=== PATIENT | female | born 1965 | race Caucasian/White ===

== ENCOUNTER 2020-09-04 12:55 | Outpatient (CLI) | payer OTHER, SELFPAY ==
--- NOTE | ~2020-09-04 | MM_ITS ---
EXAMINATION: MM screening fatemeh BI w latrice HISTORY: Screening mammogram, family history of breast cancer in her mother. TECHNIQUE: Craniocaudal and mediolateral oblique 3-D tomosynthesis images were obtained and synthetic 2-D images were generated. CAD analysis was submitted and interpreted. COMPARISON: 06/06/2019, 06/01/2018, 11/10/2016 BREAST PARENCHYMAL COMPOSITION: The breasts are almost entirely fatty. FINDINGS: There is no evidence of suspicious mass, calcification, or architectural distortion to sugg est malignancy in either breast. There has been no suspicious interval change. IMPRESSION: 1. No mammographic evidence of malignancy. 2. Recommend routine screening mammography in one year. BI-RADS Category 1: Negative Reviewed, dictated and finalized at location A. RVISORY LIFEGUARD
== END 2020-09-04 12:56 | disposition home or self-care (01) ==
LOC: CHSIMG 12:57
PROVIDERS: PCP Family Medicine; Visit Provider Obstetrics & Gynecology
DX: Z12.31 Encounter for screening mammogram for malignant neoplasm of breast (principal)
CPT/HCPCS: 77063; 77067

== ENCOUNTER 2020-09-10 08:58 | Outpatient (CLI) | payer OTHER, SELFPAY ==
[2020-09-10 09:12] LABS: Basophils Absolute Auto 0.06 K/mm3 (0.00-0.10); Basophils Percent Auto 0.7 % (0.0-1.0); Eosinophils Percent Auto 4.8 % (1.0-6.0); Hematocrit 46.4 % (35.0-49.0); Hemoglobin 15.1 g/dL (12.0-15.0); Immature Granulocyte Absolute 0.01 K/mm3 (0.00-0.00); Immature Granulocyte Percent A 0.1 % (0.0-0.0); Lymphocytes Absolute Auto 2.04 K/mm3 (1.10-4.50); Lymphocytes Percent Auto 24.3 % (18.0-42.0); Mean Corpuscular HGB Conc 32.5 g/dL (32.0-36.0); Mean Corpuscular Hemoglobin 28.2 pg (27.0-31.0); Mean Corpuscular Volume 86.6 fL (78.0-102.0); Mean Platelet Volume 9.8 fl (9.2-11.8); Monocytes Absolute Auto 0.77 K/mm3 (0.10-0.90); Monocytes Percent Auto 9.2 % (2.0-11.0); Neutrophils Absolute Auto 5.1 K/mm3 (1.7-7.2); Neutrophils Percent Auto 60.9 % (50.0-70.0); Platelet Count Result 276 K/mm3 (150-420); Red Blood Count 5.36 M/mm3 (4.20-5.40); Red Cell Distribution Width 12.3 % (11.6-14.4); White Blood Count 8.4 K/mm3 (4.8-10.8)
[2020-09-10 10:11] LABS: Alanine Aminotransferase 30 U/L (14-59); Albumin Level 3.7 g/dL (3.4-5.0); Alkaline Phosphatase 58 U/L (46-116); Anion Gap 9 mmol/L (8-16); Aspartate Amino Transferase 18 U/L (15-37); Bilirubin,Total 0.3 mg/dL (0.00-1.00); Blood Urea Nitrogen 14 mg/dL (7-18); Calcium 8.8 mg/dL (8.5-10.1); Carbon Dioxide 28 mmol/L (21-32); Chloride 100 mmol/L (98-108); Cholesterol 210 mg/dL (0-200); Estimated Glomerular Filt Rate > 60; Glucose 90 mg/dL (70-99); HDL Direct 58 mg/dL (40-60); LDL Cholesterol Calculated 139 mg/dL (<130); Osmolality Calculated 284 mOsm/kg (285-295); Potassium 4.3 mmol/L (3.5-5.1); Sodium 137 mmol/L (136-145); Total Protein 8.2 g/dL (6.4-8.2); Triglycerides 67 mg/dL (0-150)
== END 2020-09-10 08:59 | disposition home or self-care (01) ==
LOC: CHSLAB 09:01
PROVIDERS: PCP Family Medicine; Visit Provider Family Medicine
DX: I10 Essential (primary) hypertension (principal)
CPT/HCPCS: 36415; 80053; 80061; 84443; 85025

== ENCOUNTER 2021-09-16 08:12 | Outpatient (CLI) | payer OTHER, SELFPAY ==
--- NOTE | ~2021-09-16 | MM_ITS ---
EXAMINATION: MM screening fatemeh BI w latrice HISTORY: Screening TECHNIQUE: Craniocaudal and mediolateral oblique 3-D tomosynthesis images were obtained and synthetic 2-D images were generated. CAD analysis was submitted and interpreted. COMPARISON: Comparison to multiple prior studies sequentially, with oldest reviewed study dated 10/24. BREAST PARENCHYMAL COMPOSITION: Breast composed of scattered areas of fibroglandular density FINDINGS: There is no evidence of suspicious mass, calcification, or architectural distortion to sugg est malignancy in either breast. There has been no suspicious interval change. IMPRESSION: 1. No mammographic evidence of malignancy. 2. Recommend routine screening mammography in one year. BI-RADS Category 1: Negative Reviewed, dictated and finalized at location A. SPRING II INSPECTOR
== END 2021-09-16 08:13 | disposition home or self-care (01) ==
LOC: CHSIMG 08:14
PROVIDERS: PCP Family Medicine; Visit Provider Obstetrics & Gynecology
DX: Z12.31 Encounter for screening mammogram for malignant neoplasm of breast (principal)
CPT/HCPCS: 77063; 77067

== ENCOUNTER 2022-09-12 08:57 | Outpatient (CLI) | payer OTHER, SELFPAY ==
--- NOTE | 2022-09-12 09:05 | EST_ITS ---
Patient Info Name: Chrissy Hernandez Age: 57 years : 1965 Gender: Female Ht: 64 in Wt: 246 lbs BSA: 2.30 m2 HR: 104 bpm BP: 149 / 99 mmHg Heart Rhythm: Tachycardia Technical Quality: Good Exam Date: 09/12/2022 9:18 AM Exam Location: [facility] Patient Status: Outpatient Admit Date: 09/12/2022 Staff Ordering Physician: Gunnar Coleman DO Attending Provider: Gunnar Coleman DO Exercise Technologist: Simran Hinkle CRT Exercise Physician: Leelee Hunt CEP Exam Type: CA stress test treadmill Study Info Indications AtypicalChestPain - An exercise stress test was performed. History/Risk Factors Hypertension: Yes Obesity: Yes History/Risk Factors Obesity, Hypertension. Summary 1. 1. Negative Ravinder exercise stress test for ischemic ST changes by ECG criteria. 2. 2. Reduced functional capacity, achieving 7 METs of workload. 3. 3. Baseline hypertension with hypertensive response to exercise. 4. 4. Appropriate HR response to exercise. 5. 5. Appropriate HR recovery at 1 minute post exercise. 6. 6. No imaging with stress testing. Protocol: Ravinder Stress ECG Details Stage: REST Duration (min): 1 min : 34 sec Speed (mph): 0.0 Grade (%): 0 HR (bpm): 105 SBP (mmHg): 149 DBP (mmHg): 99 METS: --- Stage: REST Duration (min): 9 min : 24 sec Speed (mph): 0.0 Grade (%): 0 HR (bpm): 111 SBP (mmHg): 149 DBP (mmHg): 99 METS: --- Stage: STAGE 1 Duration (min): 1 min : 0 sec Speed (mph): 1.7 Grade (%): 10 HR (bpm): 119 SBP (mmHg): 149 DBP (mmHg): 99 METS: --- Stage: STAGE 1 Duration (min): 2 min : 0 sec Speed (mph): 1.7 Grade (%): 10 HR (bpm): 128 SBP (mmHg): 149 DBP (mmHg): 99 METS: --- Stage: STAGE 1 Duration (min): 3 min : 0 sec Speed (mph): 1.7 Grade (%): 10 HR (bpm): 138 SBP (mmHg): 188 DBP (mmHg): 79 METS: --- Stage: STAGE 2 Duration (min): 1 min : 0 sec Speed (mph): 2.5 Grade (%): 12 HR (bpm): 151 SBP (mmHg): 188 DBP (mmHg): 79 METS: --- Stage: STAGE 2 Duration (min): 2 min : 0 sec Speed (mph): 2.5 Grade (%): 12 HR (bpm): 165 SBP (mmHg): 188 DBP (mmHg): 79 METS: --- Stage: STAGE 2 Duration (min): 2 min : 0 sec Speed (mph): 2.5 Grade (%): 12 HR (bpm): 165 SBP (mmHg): 188 DBP (mmHg): 79 METS: --- Stage: RECOVERY Duration (min): 0 min : 59 sec Speed (mph): 0.0 Grade (%): 0 HR (bpm): 149 SBP (mmHg): 188 DBP (mmHg): 79 METS: --- Stage: RECOVERY Duration (min): 1 min : 59 sec Speed (mph): 0.0 Grade (%): 0 HR (bpm): 133 SBP (mmHg): 232 DBP (mmHg): 45 METS: --- Stage: RECOVERY Duration (min): 2 min : 59 sec Speed (mph): 0.0 Grade (%): 0 HR (bpm): 120 SBP (mmHg): 232 DBP (mmHg): 45 METS: --- Stage: RECOVERY Dur
== END 2022-09-12 08:58 | disposition home or self-care (01) ==
LOC: CHSCARD 08:59
PROVIDERS: PCP Family Medicine; Visit Provider Family Medicine
DX: R07.9 Chest pain, unspecified (principal); K21.9 Gastro-esophageal reflux disease without esophagitis
CPT/HCPCS: 93017

== ENCOUNTER 2022-09-22 08:17 | Outpatient (CLI) | payer OTHER, SELFPAY ==
--- NOTE | ~2022-09-22 | MM_ITS ---
EXAMINATION: MM screening fatemeh BI w latrice HISTORY: Screening mammogram, family history of breast cancer in her mother. TECHNIQUE: Craniocaudal and mediolateral oblique 3-D tomosynthesis images were obtained and synthetic 2-D images were generated. CAD analysis was submitted and interpreted. COMPARISON: 09/16/2021, 09/04/2020, 06/06/2019 BREAST PARENCHYMAL COMPOSITION: There are scattered areas of fibroglandular density. FINDINGS: No suspicious mass, calcification, or architectural distortion are identified in either luis ast to suggest malignancy. There has been no suspicious interval change. IMPRESSION: 1. No mammographic evidence of malignancy. 2. Recommend routine screening mammography in one year. BI-RADS Category 1: Negative Reviewed, dictated and finalized at location A. AL COMPENSATION MANAGER
== END 2022-09-22 08:18 | disposition home or self-care (01) ==
LOC: CHSIMG 08:19
PROVIDERS: PCP Family Medicine; Visit Provider Obstetrics & Gynecology
DX: Z12.31 Encounter for screening mammogram for malignant neoplasm of breast (principal)
CPT/HCPCS: 77063; 77067

== ENCOUNTER 2023-10-06 07:58 | Outpatient (CLI) | payer OTHER, SELFPAY ==
--- NOTE | ~2023-10-06 | MM_ITS ---
EXAMINATION: MM screening fatemeh BI w latrice HISTORY: Screening mammogram TECHNIQUE: Craniocaudal and mediolateral oblique 3-D tomosynthesis images were obtained and synthetic 2-D images were generated. CAD analysis was submitted and interpreted. COMPARISON: 09/22/2022, 09/16/2021 bilateral screening mammogram examinations BREAST PARENCHYMAL COMPOSITION: There are scattered areas of fibroglandular density. FINDINGS: There is no evidence of suspicious mass, calcification, or architectural distortion to sugg est malignancy in either breast. There has been no suspicious interval change. IMPRESSION: 1. No mammographic evidence of malignancy. 2. Recommend routine screening mammography in one year. BI-RADS Category 1: Negative Reviewed, dictated and finalized at location A. T SEWER
== END 2023-10-06 07:59 | disposition home or self-care (01) ==
LOC: CHSIMG 07:59
PROVIDERS: PCP Family Medicine; Visit Provider Obstetrics & Gynecology
DX: Z12.31 Encounter for screening mammogram for malignant neoplasm of breast (principal)
CPT/HCPCS: 77063; 77067

== ENCOUNTER 2024-04-25 12:49 | Outpatient (CLI) | payer OTHER, SELFPAY ==
--- NOTE | ~2024-04-25 | US_ITS ---
EXAMINATION: US soft tissue groin RT DATE: 04/25/2024 13:08 INDICATION: Right lower quadrant abdominal pain. TECHNIQUE: Multiple grayscale and Doppler ultrasound images of the right groin were obtained. COMPARISON: None FINDINGS: There are normal lymph nodes in the right inguinal region. There is no hernia. IMPRESSION: 1. Normal right inguinal region. Reviewed, dictated and finalized at location A.
== END 2024-04-25 12:50 | disposition home or self-care (01) ==
LOC: CHSIMG 12:49
PROVIDERS: PCP Family Medicine; Visit Provider Nurse Practitioner Family
DX: R22.42 Localized swelling, mass and lump, left lower limb (principal)
CPT/HCPCS: 76882

== ENCOUNTER 2024-10-24 08:24 | Outpatient (CLI) | payer OTHER, SELFPAY | END 2024-10-24 08:25 | disposition home or self-care (01) | LOC: CHSIMG 08:26 | PROVIDERS: PCP Family Medicine; Visit Provider Obstetrics & Gynecology | DX: Z12.31 Encounter for screening mammogram for malignant neoplasm of breast (principal) | CPT/HCPCS: 77063; 77067 ==

== ENCOUNTER 2024-12-05 08:54 | Outpatient (CLI) | payer OTHER, SELFPAY ==
--- OUTSIDE RECORDS SUMMARY | 2024-12-05 09:07 | XMS_ITS | Clinical Summary ---
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 Gender Identity Not on file Sexual Orientation Not on file Last Filed Vital Signs Vital Sign Reading Time Taken Comments Blood Pressure 132/78 01/09/2015 1:54 PM CDT Pulse - - Temperature - - Respiratory Rate - - Oxygen Saturation - - Inhaled Oxygen Concentration - - Weight 114.9 kg (253 lb 6.4 oz) 01/09/2015 2:26 PM CDT Height 165.1 cm (5' 5 ) 01/09/2015 1:54 PM CDT Body Mass Index 42.17 01/09/2015 1:54 PM CDT Plan of Treatment Health Maintenance Due Date Last Done Comments Cervical Cancer Screening Pa p Smear (Age 30 to 64) Every 3 Years 1965 Colorectal Cancer Screening Colonoscopy (10 Years) 1965 Annual Physical 1969 Hepatitis C 1984 DTaP, Tdap and Td Vaccines ( 1 - Tdap) 1985 Hepatitis B Vaccines (1 of 3 - 19+ 3-dose series) 1985 Cervical Cancer Screening Pa p with HPV Testing (Age 30 to 64) Every 5 Years 1996 Cervical Cancer Screening with HPV 1996 Mammogram Screening 2006 Zoster Vaccines (1 of 2) 2016 COVID-19 Vaccine (2023-2 5 season) 2024 Meningococcal B Vaccine Aged Out No l onger eligible based on patient's age to complete this topic Meningococcal Vaccine Aged Out No lola sonido eligible based on patient's age to complete this topic Pneumococcal Vaccine: Pediat rics (0 to 5 Years) and At-Risk Patients (6 to 64 Years) Aged Out No longer eligible b ased on patient's age to complete this topic RSV Immunizations Under 20 Months Aged Out No longer eligible based on patient's age to complete this topic
[2024-12-05 09:17] LABS: Basophils Absolute Auto 0.07 K/mm3 (0.00-0.10); Basophils Percent Auto 1.1 % (0.0-1.0); Eosinophils Absolute Auto 0.53 K/mm3 (0.02-0.50); Eosinophils Percent Auto 8.1 % (1.0-6.0); Hematocrit 49.3 % (35.0-49.0); Hemoglobin 15.6 g/dL (12.0-15.0); Immature Granulocyte Absolute 0.02 K/mm3 (0.00-0.00); Immature Granulocyte Percent A 0.3 % (0.0-0.0); Immature Platelet Fraction Pct 5.3 % (1.0-7.0); Lymphocytes Absolute Auto 1.81 K/mm3 (1.10-4.50); Lymphocytes Percent Auto 27.7 % (18.0-42.0); Mean Corpuscular HGB Conc 31.6 g/dL (32-36); Mean Corpuscular Hemoglobin 28.1 pg (27.0-31.0); Mean Corpuscular Volume 88.8 fL (78.0-102.0); Mean Platelet Volume 10.8 fl (9.2-11.8); Monocytes Absolute Auto 0.68 K/mm3 (0.10-0.90); Monocytes Percent Auto 10.4 % (2.0-11.0); Neutrophils Absolute Auto 3.43 K/mm3 (1.70-7.20); Neutrophils Percent Auto 52.4 % (50.0-70.0); Platelet Count Result 113 K/mm3 (150-420); Red Blood Count 5.55 M/mm3 (4.20-5.40); Red Cell Distribution Width 12.4 % (11.6-14.4); White Blood Count 6.5 K/mm3 (4.8-10.8)
[2024-12-05 09:40] LABS: Hemoglobin A1C 5.1 % (<5.7)
[2024-12-05 09:52] LABS: Alanine Aminotransferase 26 U/L (14-59); Albumin Level 3.4 g/dL (3.4-5.0); Alkaline Phosphatase 67 U/L (46-116); Anion Gap 10 mmol/L (4-12); Bilirubin,Total 0.4 mg/dL (0.00-1.00); Blood Urea Nitrogen 16 mg/dL (7-18); Calcium 8.8 mg/dL (8.5-10.1); Carbon Dioxide 24 mmol/L (21-32); Chloride 103 mmol/L (98-108); Cholesterol 245 mg/dL (0-200); Estimated Glomerular Filt Rate > 60; Glucose 88 mg/dL (70-99); HDL Direct 72 mg/dL (40-60); LDL Cholesterol Calculated 150 mg/dL (<130); Osmolality Calculated 284 mOsm/kg (285-295); Sodium 137 mmol/L (136-145); Total Protein 7.1 g/dL (6.4-8.2); Triglycerides 113 mg/dL (0-150)
[2024-12-05 09:56] LABS: Potassium 4.7 mmol/L (3.5-5.1)
[2024-12-05 09:57] LABS: Aspartate Amino Transferase 20 U/L (15-37)
== END 2024-12-05 08:55 | disposition home or self-care (01) ==
PROVIDERS: PCP Family Medicine; Visit Provider Family Medicine
DX: I10 Essential (primary) hypertension (principal); E11.9 Type 2 diabetes mellitus without complications; E66.01 Morbid (severe) obesity due to excess calories; E03.9 Hypothyroidism, unspecified; R06.83 Snoring
CPT/HCPCS: 36415; 80053; 80061; 83036; 84443; 85025; 85055

== ENCOUNTER 2025-05-08 15:12 | Outpatient (CLI) | payer OTHER, SELFPAY ==
--- NOTE | 2025-05-08 15:30 | ECG_ITS ---
Test Date: 2025-05-08 15:37:48 Measurements Intervals [place] Rate: 88 P: 15 [place]: 178 QRS: -26 QRSD: 74 T: -7 QT: 345 QTc: 418 Interpretive Statements SINUS RHYTHM WITH OCCASIONAL SUPRAVENTRICULAR PREMATURE COMPLEXES LOW QRS VOLTAGE IN PRECORDIAL LEADS [QRS DEFLECTION < 1.0 mV IN CHEST LEADS] VOLTAGE CRITERIA FOR LVH [MEETS CRITERIA IN ONE OF: R(aVL), S(V1), R(V5), R(V5/V6)+S(V1)] INFERIOR MYOCARDIAL INFARCTION [40+ ms Q WAVE AND/OR ST/T ABNORMALITY IN II/aVF], OF INDETERMINATE AGE No previous ECG available for comparison Electronically Signed On 05-09-2025 15:09:31 CDT by Giuseppe Hernández M.D.
== END 2025-05-08 15:13 | disposition home or self-care (01) ==
LOC: ANHSURGERY 15:15
PROVIDERS: PCP Family Medicine; Visit Provider Surgery
DX: Z01.818 Encounter for other preprocedural examination (principal); I10 Essential (primary) hypertension; K40.90 Unilateral inguinal hernia, without obstruction or gangrene, not specified as recurrent
CPT/HCPCS: 36415; 86850; 86900; 86901; 93005

== ENCOUNTER 2025-05-14 02:30 | Day surgery (SDC) | payer OTHER, SELFPAY ==
[2025-05-05 11:50] VITALS: BMI 38.3
--- NOTE | 2025-05-05 11:59 | PC.NURSE ---
Report to the Outpatient Waiting Room, entrance under the green pavilion located off [facility], at time _0600_ on date _[id number]_. Planned Procedure Time: _0730_.? Time changes happen often and if your time is changed the preop area will call you the afternoon before. - You and your visitor will be asked to self-screen and do not enter if you have any COVID symptoms. Please call surgeon if you need to reschedule. - A mask is optional within the hospital at this time. Patients may have clear liquids (water, carbonated beverages, clear teas, apple juice) until 3 hours prior to surgery with a maximum of 20 ounces. - No food from midnight until time of surgery and no smoking, or chewing tobacco (or any form of nicotine). No chewing gum, candy or mints. Take only the following medications with a SIP of water on the morning of surgery: __None___ DO NOT STOP ANY OF YOUR OTHER PRESCRIPTION MEDICATIONS PRIOR TO SURGERY EXCEPT THE FOLLOWING Hold all vitamins and supplements for 3 days per anesthesiologist. Medications to discontinue per physician Use Acetaminophen for pain. Ibuprofen only with Dr Calabrese's permission. Date to take last dose Please no make-up, nail tamazight, hairspray, perfume, deodorant, or body powder the day of surgery.? No jewelry (including any body piercings) or valuables the day of surgery, leave them at home.? Please take a shower or bath the night before, or the morning of, surgery with an antibacterial soap.? Wear comfortable, loose fitting clothing.? - Jewelry must be removed prior to entering the operating room.? Rings and piercings that are not removed may be cut off. - The hospital will not accept responsibility for valuables.? - Please leave all valuables, including medications, at home the day of surgery. If you are going home after surgery, a licensed wood pile driver operator must drive you home.? - NO public transportation without another adult if you receive anesthesia. - We recommend that an adult stay with you for 24 hours following discharge. - We also recommend that you do not drive, make important decision, drink alcoholic beverages, or take any drugs that were not prescribed by your health care provider for at least 24 hours after your discharge time. Follow any additional instructions given to you from your surgeon. Telephone instructions given to __Chrissy___and asked if any additional questions and then verbalized understanding. Patient advised to call surgeon office or pre surgery nurse liaison [phone] if any additional questions.
[2025-05-14] VITALS (10 sets, daily range): BP systolic 104–145; BP diastolic 56–81; PULSE 85–94; RESP 14–20; TEMP 36.6–36.7; O2SAT 92–98; BMI 37.5
--- OUTSIDE RECORDS SUMMARY | 2025-05-14 02:33 | XMS_ITS | Clinical Summary ---
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 Gender Identity Not on file Sexual Orientation Not on file Last Filed Vital Signs Vital Sign Reading Time Taken Comments Blood Pressure 132/78 01/09/2015 1:54 PM CDT Pulse - - Temperature - - Respiratory Rate - - Oxygen Saturation - - Inhaled Oxygen Concentration - - Weight 114.9 kg (253 lb 6.4 oz) 01/09/2015 2:26 PM CDT Height 165.1 cm (5' 5) 01/09/2015 1:54 PM CDT Body Mass Index [...] Screening with HPV 1996 Mammogram Screening 2006 Pneumococcal Vaccine: 50+ Ye ars (1 of 1 - PCV) 2016 Zoster Vaccines (1 of 2) 2016 COVID-19 Vaccine (2023-2 5 season) 2025 Meningococcal B Vaccine Aged Out No l onger eligible based on patient's age to complete this topic Meningococcal Vaccine Aged Out No lola sonido eligible based on patient's age to complete this topic RSV Immunizations Under 20 Months Aged Out No longer eligible based on patient's age to complete this topic
[2025-05-14] MEDS: LACTATED RINGERS 1,000 ML 30 ML IV CONT ×2 (06:30→09:14)
[2025-05-14] MEDS: KETOROLAC 15 MG/ML VIAL (*BKC) IV PUSH (06:35)
[2025-05-14] MEDS: ACETAMINOPHEN 500 MG TABLET 1000 MG PO (06:35)
[2025-05-14 06:37] LABS: Platelet Count Result 250 k/mm3 (150-375)
--- NOTE | 2025-05-14 06:48 | WPDANESEPPF ---
Anes - Initial Pre Proc Eval Procedure: Operation Date: 05/14/25 07:30 Proposed Procedures p Laparoscopic Right Inguinal Hernia Repair with Mesh, DaVinci Assisted - Gasper Calabrese DO Date/Time: 05/14/25 06:48 Surgeon: Gasper Calabrese DO Pre Op Diagnosis: rt ing hernia Patient Data Age: 59 Gender: F Height: 1.65 m Weight: 102.5 kg Last Vital Signs Temp 36.7 C 05/14/25 06:20 Pulse 91 05/14/25 06:20 Resp 14 05/14/25 06:20 BP 138/81 05/14/25 06:20 Pulse Ox 96 05/14/25 06:20 Allergies Allergy/AdvReac Type Severity Reaction Status Date / Time erythromycin base Allergy Unknown HIVES Verified 05/14/25 06:19 Home Medications ?Medication ?Instructions ?Recorded ?Confirmed ?Type estradiol 0.075 mg/24 hr weekly 1 patch transdermal WEEKLY 09/03/20 05/05/25 History transdermal patch lisinopril 10 mg tablet 10 mg PO DAILY #30 tabs 07/14/21 05/05/25 Rx acetaminophen 500 mg capsule 500 mg PO Q6H PRN pain 05/05/25 05/05/25 History diphenhydramine HCl 25 mg tablet 25 mg PO DAILY 05/05/25 05/05/25 History (Allergy Medicine) famotidine 10 mg tablet 10 mg PO DAILY 05/05/25 05/05/25 History ibuprofen 200 mg tablet (Advil) 200 mg PO Q6H PRN pain 05/05/25 05/05/25 History multivitamin with minerals-folic 2 tablet PO DAILY 05/05/25 05/05/25 History acid 200 mcg chewable tablet (Adult Multivitamin Gummies) vitamin A 2,500 unit-vit C 100 2 cap PO DAILY 05/05/25 05/05/25 History mg-biotin 2,500 zha-vnkf-[id number] capsule (Lgum-Ioms-Esaw (vit A,P-lievyp-Mp-Cu)) Laboratory Tests 05/14/25 06:18 Plt Count Pending MPV Pending Patient hx anesthesia problems: none Family hx anesthesia problems: none Results Review: All pre-operative results and documents have been reviewed as part of the pre-operative evaluation. [facility] Past Medical History Medical History (Updated 05/14/25 @ 06:48 by Layo Jorgensen MD) Obesity Hypertension Surgical History Surgical History Hx of tonsillectomy H/O hernia repair Hx of cholecystectomy Hx of total hysterectomy Family History Family History Mother Family history of arthritis Family history of malignant neoplasm Family history of congestive heart failure Father Family history of malignant neoplasm Other Hypertension Social History Social History Smoking status: Never smoker Alcohol intake: current Do You Feel Safe in your Home?: Yes Lack of Transportation: No Lack of Food: Never True Current Housing: I Have Housing Concerned About Future Housing: No Difficulty Paying Gas/Electric Bills: No Difficulty Paying for Meds: No Currently Unemployed: No Education: High School Diploma/GED Difficulty w/ Childcare or Family Care: No Living arrangements: with family Spiritual care concerns: No Anes - Eval Final PreProcedure Day of Procedure 05/14/25 06:48 Patient weight: obese Heart: regular rate and rhythm Lungs: clear to auscultation Airway: Mallampati scale class II Neurological: alert and oriented Last oral intake: >/= 8 hours ASA classification: III Emergent: no Anesthetic plan: proceed Anesthesia type and monitoring: general ETT and standard monitoring Results Review: All pre-operative results and documents have been reviewed as part of the pre-operative evaluation. Informed Consent: The patient's anesthetic plan and its attendant risks and benefits were discussed with the patient/family/POA. Questions were solicited and answers provided to the satisfaction of the patient/family/POA.
[2025-05-14] MEDS: SCOPOLAMINE 1 MG PATCH 1 PATCH TRANSDERM (06:55)
--- NOTE | 2025-05-14 07:11 | PM.IMHP ---
H&P: HPI History of Present Illness Date/Time: 05/14/25 07:11 Chief Complaint: right inguinal hernia Narrative: 59 yo woman presents for right inguinal hernia repair. She reports no changes since last seen in office. Review of Systems Review of Systems: All systems reviewed & are unremarkable except as noted in HPI and below Constitutional: Constitutional: Denies chills, Denies fever(s), Denies headache(s) and Denies weight loss Eyes: Eyes: Denies change in vision ENT: Denies dizziness, Denies headache(s), Denies neck mass and Denies throat swelling Cardiovascular: Cardiovascular: Denies chest pain, Denies lightheadedness and Denies dyspnea Respiratory: Respiratory: Denies cough, Denies dyspnea and Denies wheezing Gastrointestinal: Gastrointestinal: Denies abdominal pain, Denies change in bowel habits, Denies nausea and Denies vomiting Genitourinary: Genitourinary: Denies hematuria and Denies dysuria Musculoskeletal: Musculoskeletal: Reports as per HPI Integumentary/Breasts: Skin/Breast: Reports as per HPI Neurologic: Denies dizziness and Denies headache(s) Allergic/Immunologic: Allergic/Immunologic: Denies throat swelling and Denies wheezing PMFSH Past Medical History Medical History (Updated 05/14/25 @ 06:48 by Layo Jorgensen MD) Obesity Hypertension Surgical History Surgical History Hx of tonsillectomy H/O hernia repair Hx of cholecystectomy Hx of total hysterectomy Family History Family History Mother Family history of arthritis Family history of malignant neoplasm Family history of congestive heart failure Father Family history of malignant neoplasm Other Hypertension Social History Social History Smoking status: Never smoker Alcohol intake: current Do You Feel Safe in your Home?: Yes Lack of Transportation: No Lack of Food: Never True Current Housing: I Have Housing Concerned About Future Housing: No Difficulty Paying Gas/Electric Bills: No Difficulty Paying for Meds: No Currently Unemployed: No Education: High School Diploma/GED Difficulty w/ Childcare or Family Care: No Living arrangements: with family Spiritual care concerns: No Meds Home Medications and Allergies Home Medications ?Medication ?Instructions ?Recorded ?Confirmed ?Type estradiol 0.075 mg/24 hr weekly 1 patch transdermal WEEKLY 09/03/20 05/05/25 History transdermal patch lisinopril 10 mg tablet 10 mg PO DAILY #30 tabs 07/14/21 05/05/25 Rx acetaminophen 500 mg capsule 500 mg PO Q6H PRN pain 05/05/25 05/05/25 History diphenhydramine HCl 25 mg tablet 25 mg PO DAILY 05/05/25 05/05/25 History (Allergy Medicine) famotidine 10 mg tablet 10 mg PO DAILY 05/05/25 05/05/25 History ibuprofen 200 mg tablet (Advil) 200 mg PO Q6H PRN pain 05/05/25 05/05/25 History multivitamin with minerals-folic 2 tablet PO DAILY 05/05/25 05/14/25 History acid 200 mcg chewable tablet (Adult Multivitamin Gummies) vitamin A 2,500 unit-vit C 100 2 cap PO DAILY 05/05/25 05/14/25 History mg-biotin 2,500 fko-fiwt-xrwbxb capsule (Ijvx-Aawe-Ofuq (vit A,F-bsqkwn-Bz-Cu)) Allergies Allergy/AdvReac Type Severity Reaction Status Date / Time erythromycin base Allergy Unknown HIVES Verified 05/14/25 06:19 Vital Signs Vital Signs - 24 hr 05/14/25 06:20 Temperature 98.1 F Pulse Rate 91 Respiratory Rate 14 Blood Pressure 138/81 Pulse Oximetry 96 Exam Const: General: no acute distress and alert Orientation/consciousness: patient oriented x3 HENMT: Head: normocephalic and atraumatic Ears: hearing grossly normal bilaterally Face/Nose/Sinus: Normal nares present Mouth: Yes Normal oral and palatal mucosa present Eyes: Periorbital: periorbital findings normal Sclera: sclerae normal EOM: EOMs intact bilaterally Neck: Neck: normal visual inspection, no lymphadenopathy and trachea midline Chest: Chest palpation & inspection: normal inspection of the chest Resp: Effort & Inspection: normal respiratory effort Auscultation: clear to auscultation bilaterally Cardio: Jugular venous distension: no JVD Rate: regular rate Rhythm: regular rhythm Heart sounds: S1 normal heart sound present and S2 normal heart sound present Peripheral pulses: Peripheral pulses 2+ throughout GI: Inspection: normal to inspection GI Palp: Yes Soft to palpation, No Tenderness to palpation present (GI), No Guarding due to palpation present (GI), No Rebound tenderness present and Yes Other GI palpation findings present (right inguinal hernia) Percussion: Yes normal to percussion Auscultation: normal bowel sounds : General: Yes no CVA tenderness Back/Spine/Pelvis: Back: no CVA tenderness Neuro: General: patient oriented x3, no focal motor deficits and CN's II-XI intact bilaterally Cognition (Neuro): normal cognition Speech: normal speech Motor exam (neuro): 5/5 motor strength present throughout Extrem: General: capillary refill normal and no clubbing, cyanosis or edema H&P: Results Labs Labs: Short CBC 05/14/25 Range/Units 06:18 Plt Count 250 (150-375) k/mm3 Assessment and Plan Assessment and plan (1) Right inguinal hernia: Code(s): K40.90 - Unilateral inguinal hernia, without obstruction or gangrene, not specified as recurrent Status: Acute Assessment and Plan: I have recommended laparoscopic right inguinal hernia repair with mesh, da Maddie assisted. I have discussed the procedure, risks, benefits, and alternatives with the patient. All questions answered. No changes since last seen in office.
--- NOTE | 2025-05-14 07:19 | WPDHPUPDATE1 ---
History and Physical Update Update Date/Time: 05/14/25 07:19 History and Physical has been reviewed, including an updated exam of the patient. There are NO changes in the patient's condition. Risks, benefits, and alternatives have been discussed and questions answered. Patient agrees to proceed with procedure.
[2025-05-14] MEDS: ceFAZolin 2 GM in SODIUM CHLORIDE 0.9% IV 50 ML 100 ML IVPB (07:30)
[2025-05-14] MEDS: BUPIVACAINE/EPINEPHRINE 0.5% 50 ML VIAL 30 ML INFILTRATE (07:56)
--- NOTE | 2025-05-14 08:39 | W.PM.PROC2 ---
Procedure Note - Detailed Date of Procedure 05/14/25 Pre-op Diagnosis Right inguinal hernia Post-op Diagnosis Same (Indirect right inguinal hernia) Procedure Performed Laparoscopic right inguinal hernia repair with mesh, da Maddie assisted Surgeon Gasper Calabrese DO Anesthesia General and Local (0.5% bupivacaine with epinephrine) Indications This is a 59-year-old woman who presented with right groin pain that started about 5-6 months ago. She was experiencing some groin pain and a bulge. This has been worse with physical activity. She was found to have a reducible right inguinal hernia on exam. Discussions were made with the patient about treatment options and decision was made to proceed with robotic assisted laparoscopic right inguinal hernia repair with mesh. Findings Robotic assisted laparoscopic right inguinal hernia repair with mesh was performed. The patient was found to have a reducible indirect right inguinal hernia. There was no evidence of a left inguinal hernia. She had a few sigmoid adhesions to the left lower quadrant and she also had some upper abdominal adhesions to her previous mesh that was placed. The upper abdominal adhesions appeared to include omentum and the transverse colon. I was able to visualize and placed my ports below where any of the upper abdominal adhesions were. A robotic transabdominal preperitoneal approach was utilized for hernia repair. Once a wide enough preperitoneal pocket was created and the hernia sac was reduced I then placed a large right 3DMax mid mesh overlying the entire right myopectineal orifice. No specimens were obtained for pathology. Description of Procedure Procedure as well as risks, benefits, and alternatives were discussed with the patient. Written consent was obtained and placed in chart prior to procedure. Patient was brought back to surgical suite. She was placed supine on operating table. Time-out was done to confirm patient and procedure. She was then intubated by Anesthesia Department. Her abdomen was prepped and draped in sterile fashion using chlorhexidine prep. 0.5% bupivacaine with epinephrine was infiltrated at each location for incision. An 8 mm incision was made in the left lateral abdomen, and a 5 mm Optiview trocar was advanced through the abdominal layers under direct visualization. Once inside the abdominal cavity, carbon dioxide insufflation was used to create a pneumoperitoneum. A camera was inserted and the abdominal cavity was inspected. The patient was placed in slight Trendelenburg position. An 8 millimeter incision was made on the right lateral abdomen and an 8 millimeter trocar was inserted under direct visualization. Another 8 millimeter incision was made just superior to the umbilicus and an 8 millimeter trocar was inserted under direct visualization. The 5 mm port was then removed and this was replaced with another 8 mm robotic port. The robotic arms were brought up to the patient's bedside and secured to the ports. The camera and instruments were inserted. I then moved over to the robotic console and took control of the camera and instruments. I carefully took down some of the adhesions in the left lower quadrant and suprapubic region using scissors with electrocautery. After careful inspection of the abdominal cavity, I began scoring the peritoneum along the right lower quadrant using scissors with electrocautery. The preperitoneal plane was entered and this was carefully dissected caudally along the inferior epigastric vessels. Careful dissection with scissors with electrocautery and blunt dissection was used to continue this dissection. I dissected far enough laterally to allow for mesh placement, and also dissected medially to identify the pubic arch and Carlos's ligament. The hernia sac was identified and carefully dissected posteriorly. The round ligament was also identified and the peritoneum was carefully dissected far enough posteriorly to allow for mesh placement. I then also transected the round ligament using scissors with electrocautery to allow for flat placement of the mesh. Once an adequate pocket was created, I then placed the mesh within the preperitoneal pocket and carefully unfolded it. The mesh was centered on the hernia defect with adequate overlap circumferentially. The inferior edge of the mesh was inspected to ensure that it was far enough away from the peritoneal edge. The mesh appeared in proper position overlying the entire myopectineal orifice. The mesh was secured using 3-0 Vicryl simple interrupted sutures in Carlos's ligament, the superior medial edge, and superior lateral edge of the mesh. The peritoneum was then closed over the mesh using a 3-0 V-lock running absorbable suture. The robotic instruments were removed. The robotic arms were disengaged from the ports and moved away from the bedside. The patient was flattened out in bed, the ports were removed under direct visualization, and the pneumoperitoneum was released. The skin of the incisions was approximated using 4-0 Monocryl subcuticular suture, and Exofin glue was applied on top. The patient was awakened from anesthesia, extubated, and transferred to recovery. Implants Large right 3DMax mid mesh Estimated Blood Loss 5 Complications No immediate complications Condition Stable Disposition Same day [facility] Billing Surgery - Charge Forward: Surgery Billing
[2025-05-14] MEDS: fentaNYL CITRATE INJ (*CRX) 100 MCG/2 ML VIAL 25 MCG IV PUSH (09:14)
[2025-05-14] MEDS: ONDANSETRON INJ 4 MG/2 ML VIAL IV PUSH (09:14)
== END 2025-05-14 11:13 | disposition home or self-care (01) ==
PROVIDERS: PCP Family Medicine; Visit Provider Surgery
PROC: 8E0Y4CZ Robotic Assisted Procedure of Lower Extremity, Percutaneous Endoscopic Approach (ICD-10-PCS; CPT 49650; principal; 2025-05-14 07:30)
DX: K40.90 Unilateral inguinal hernia, without obstruction or gangrene, not specified as recurrent (principal); I10 Essential (primary) hypertension; E66.9 Obesity, unspecified; Z68.37 Body mass index [BMI] 37.0-37.9, adult
CPT/HCPCS: 49650; S2900; 36415; 85049; J0690; A9270; C1781; J1100; J1200; J1885; J2003; J2250; J2405; J2704; J3010; J7030; J7120